=== PATIENT | female | born 1980 | race African-American/Black ===

== ENCOUNTER 2020-01-22 21:06 | Emergency (ER) | payer MEDICAID ==
[~2020-01-22] VITALS: Ht 167.6 cm; Wt 101.3 kg
[2020-01-22 21:32] VITALS: BP 136/76
--- NOTE | 2020-01-22 22:12 | NUR ---
Dr. Mills assessing pt.
[2020-01-22] MEDS ORDERED: KETOROLAC 30 MG/ML VIAL IM ONE (22:45)
--- NOTE | 2020-01-22 22:46 | NUR ---
PT REFUSED TORADOL SHOT.
[2020-01-22] MEDS ORDERED: AMOXIL/CLAVULANATE 875/125 MG 1 TAB ONE (22:50)
[2020-01-22] MEDS ORDERED: AMOXIL/CLAVULANATE 875/125 MG 1 TAB PO ONE (22:55)
--- NOTE | 2020-01-22 23:25 | NUR ---
Patient discharged with v/s stable. Written and verbal after care instructions given and explained. Patient alert, oriented and verbalized understanding of instructions. Ambulatory with steady gait. All questions addressed prior to discharge. ID band removed. Patient advised to follow up with PMD. Rx of IBUPROFEN AND AUGMENTIN given. Patient educated on indication of medication including possible reaction and side effects. Opportunity to ask questions provided and answered.
[2020-01-22 23:26] VITALS: BP 136/76
[2020-01-23] MEDS ORDERED: AMOXIL/CLAVULANATE 875/125 MG 1 TAB PO SCH (09:00)
== END 2020-01-22 23:26 | disposition home or self-care (01) ==
LOC: MED 21:06
DX: R51 Headache (principal); R09.81 Nasal congestion
CPT/HCPCS: 99283; J1885

== ENCOUNTER 2020-02-23 18:07 | Emergency (ER) | payer MEDICAID ==
[~2020-02-23] VITALS: Ht 167.6 cm; Wt 90.7 kg
--- NOTE | 2020-02-23 18:16 | NUR ---
PT AMBULATED TO BED 12, STEADY GAIT
[2020-02-23 18:17] VITALS: BP 124/85
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
--- NOTE | 2020-02-23 18:23 | NUR ---
LV PASCUAL AT BEDSIDE
[2020-02-23 18:34] VITALS: BP 124/85
--- NOTE | 2020-02-23 18:35 | NUR ---
Patient discharged with v/s stable. Written and verbal after care instructions given and explained. Patient alert, oriented and verbalized understanding of instructions. Ambulatory with steady gait. All questions addressed prior to discharge. ID band removed. Patient advised to follow up with PMD. Rx of MOTRIN AND AUGMENTIN given. Patient educated on indication of medication including possible reaction and side effects. Opportunity to ask questions provided and answered.
== END 2020-02-23 18:35 | disposition home or self-care (01) ==
LOC: MED 18:07
DX: K08.89 Other specified disorders of teeth and supporting structures (principal); R03.0 Elevated blood-pressure reading, without diagnosis of hypertension
CPT/HCPCS: 99283

== ENCOUNTER 2021-04-20 12:58 | Emergency (ER) | payer MEDICAID, OTHER ==
[~2021-04-20] VITALS: Ht 167.6 cm; Wt 99.8 kg
[2021-04-20 13:06] VITALS: BP 137/98
--- NOTE | 2021-04-20 13:17 | NUR ---
PT AMBULATED TO BED
--- NOTE | 2021-04-20 13:51 | NUR ---
X-Ray at bedside.
[2021-04-20 14:09] LABS: BASOPHILS # (AUTO) 0.1 K/uL (0.00-0.22); BASOPHILS % (AUTO) 0.7 % (0.0-2.0); EOSINOPHILS # (AUTO) 0.3 K/uL (0-0.4); EOSINOPHILS % (AUTO) 3.7 % (0.0-4.0); HEMATOCRIT 36.6 % (36-48); LYMPHOCYTES # (AUTO) 2.6 K/uL (2.5-16.5); LYMPHOCYTES % (AUTO) 35.6 % (20.5-51.1); MEAN CORPUSCULAR HEMOGLOBIN 26 pg (27-31); MEAN CORPUSCULAR HGB CONC 33 g/dL (33-37); MEAN CORPUSCULAR VOLUME 80.3 fL (80-94); MONOCYTES # (AUTO) 0.9 K/uL (0.8-1.0); MONOCYTES % (AUTO) 12.6 % (1.7-9.3); NEUTROPHILS # (AUTO) 3.5 K/uL (1.8-7.7); NEUTROPHILS % (AUTO) 47.4 % (42.2-75.2); PLATELET COUNT (AUTO) 260 K/uL (140-450); RED BLOOD CELL COUNT(AUTO) 4.56 MIL/uL (4.20-5.40); RED CELL DISTRIBUTION WIDTH 15.2 % (11.6-13.7); WHITE BLOOD COUNT (AUTO) 7.4 K/uL (4.8-10.8)
--- NOTE | 2021-04-20 14:29 | NUR ---
40/F BIB SELF WITH C/O UPPER BACK AND CHEST PAIN SINCE TODAY. PATIENT STATES ON HER WAY TO WORK THIS MORNING SHE BEGAN HAVING SUDDEN BACK PAIN RADIATING TO HER CHEST, DENIES ANY RECENT INJURY OR TRAUMA. REPORTS TAKING ASPIRIN WITH NO RELIEF, STATES 8/10 SHARP PAIN THAT IS NONRADIATING, STATES MOVEMENT, DEEP BREATHS AND BENDING FORWARD WORSENS THE PAIN. DENIES SOB, FEVER, CHILLS OR N/V/D.
[2021-04-20 14:32] LABS: ALBUMIN 3.4 g/dL (3.4-5.0); ANION GAP 11.1 (8-16); CARBON DIOXIDE 28.4 mmol/L (21-32); CREATININE 0.9 mg/dL (0.6-1.3); POTASSIUM 4.5 mmol/L (3.5-5.1); TOTAL BILIRUBIN 0.2 mg/dL (0.0-1.0)
[2021-04-20] MEDS ORDERED: KETOROLAC 60 MG/2 ML VIAL IM ONE (15:25)
[2021-04-20] MEDS ORDERED: NITROGLYCERIN 0.4 MG TAB SL ONE (15:25)
[2021-04-20] MEDS ORDERED: ASPIRIN 81 MG TAB.CHEW PO ONE (15:25)
--- NOTE | 2021-04-20 16:15 | NUR ---
PATIENT RESTING IN BED, STATES SOME RELIEF AT THIS. 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
[2021-04-20] MEDS ORDERED: NAPR500E1 PO (17:12)
[2021-04-20] MEDS ORDERED: LID5T TP (17:12)
[2021-04-20 17:48] VITALS: BP 128/85
--- NOTE | 2021-04-20 17:49 | NUR ---
Patient discharged with v/s stable. Written and verbal after care instructions given and explained. Patient alert, oriented and verbalized understanding of instructions. Ambulatory with steady gait. All questions addressed prior to discharge. ID band removed. Patient advised to follow up with PMD. Rx of LIDOCAINE, NAPROXEN given. Patient educated on indication of medication including possible reaction and side effects. Opportunity to ask questions provided and answered.
== END 2021-04-20 17:49 | disposition home or self-care (01) ==
LOC: MED 12:58
DX: R07.89 Other chest pain (principal); M54.9 Dorsalgia, unspecified; Z79.1 Long term (current) use of non-steroidal anti-inflammatories (NSAID); Z79.899 Other long term (current) drug therapy
CPT/HCPCS: 36415; 71045; 80053; 81002; 81025; 83880; 84484; 85025; 85379; 93005; 96372; 99285; J1885; Q0092

== ENCOUNTER 2022-01-11 10:45 | Emergency (ER) | payer OTHER ==
[~2022-01-11] VITALS: Ht 167.6 cm; Wt 101.6 kg
[~2022-01-11 10:45] MED LIST: LID5T TP; NAPR500E1 PO
[2022-01-11 10:49] VITALS: BP 132/95
--- NOTE | 2022-01-11 10:53 | NUR ---
AMBULATED TO BED 4
[2022-01-11] MEDS ORDERED: ONDANSETRON 4 MG ODT PO ONE (11:20)
[2022-01-11] MEDS ORDERED: SILVER SULFADIAZINE 1% 50 GM JAR TP ONE (11:20)
[2022-01-11] MEDS ORDERED: MORPHINE SULFATE 4 MG/ML SYR IM ONE (11:20)
[2022-01-11] MEDS ORDERED: BACITRACIN OINT 500 UNITS/GM PKT TP ONE (11:20)
--- NOTE | 2022-01-11 11:22 | NUR ---
LV Amador evaluating patient at bedside
[2022-01-11] MEDS ORDERED: BACI1PAC6 TP (11:41)
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
--- NOTE | 2022-01-11 12:36 | NUR ---
PT WOUNDS TO LEFT LOWER ANTERIOR LEG DRESSED PER ER MID LEVEL. PT TOLERATED DRESSINGS
--- NOTE | 2022-01-11 13:27 | NUR ---
Patient discharged with v/s stable. Written and verbal after care instructions given. Patient alert, oriented and verbalized understanding of instructions. Ambulatory with steady gait. All questions addressed prior to discharge. ID band removed. Patient advised to follow up with PMD. Rx of BACITRACIN given. Opportunity to ask questions provided and answered.
--- NOTE | 2022-01-11 13:28 | NUR ---
The patient's care was reviewed and supervised by Bina Jimenes RN.
[2022-01-11 13:30] VITALS: BP 126/87
== END 2022-01-11 13:27 | disposition home or self-care (01) ==
LOC: MED 10:45
DX: T25.222A Burn of second degree of left foot, initial encounter (principal); T25.221A Burn of second degree of right foot, initial encounter; T23.101A Burn of first degree of right hand, unspecified site, initial encounter; T31.0 Burns involving less than 10% of body surface; R03.0 Elevated blood-pressure reading, without diagnosis of hypertension; X08.8XXA Exposure to other specified smoke, fire and flames, initial encounter; Y93.89 Activity, other specified; Y92.89 Other specified places as the place of occurrence of the external cause; Y99.8 Other external cause status
CPT/HCPCS: 16000; 90471; 90715; 96372; 99284; J2270; Q0162

== ENCOUNTER 2022-01-21 08:30 | Emergency (ER) | payer OTHER ==
[~2022-01-21] VITALS: Ht 167.6 cm; Wt 10.0 kg
[~2022-01-21 08:30] MED LIST changes: +BACI1PAC6 TP
[2022-01-21 08:34] VITALS: BP 136/73
--- NOTE | 2022-01-21 08:34 | NUR ---
Patient ambulated to bed 3.
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
[2022-01-21] MEDS ORDERED: BACITRACIN OINT 500 UNITS/GM PKT TP ONE (08:50)
--- NOTE | 2022-01-21 08:56 | NUR ---
Right hand soaked in betadine and sterile water.
--- NOTE | 2022-01-21 09:16 | NUR ---
PER ER MD, STERILE WATER AND BETADINE SOLUTION APPLIED TO PT R HAND. NON ADHERENT THEN APPLIED TO PT 1ST 2ND AND 3RD DIGIT. + CMS AFTER APPLICATION
[2022-01-21] MEDS ORDERED: SULF-59 PO (09:41)
[2022-01-21] MEDS ORDERED: CEPH-588 PO (09:41)
--- NOTE | 2022-01-21 10:04 | NUR ---
Patient discharged with v/s stable. Written and verbal after care instructions given and explained. Patient alert, oriented and verbalized understanding of instructions. Ambulatory with steady gait. All questions addressed prior to discharge. ID band removed. Patient advised to follow up with PMD. Rx of Keflex & Bactrim Ds given. Patient educated on indication of medication including possible reaction and side effects. Opportunity to ask questions provided and answered.
== END 2022-01-21 10:04 | disposition home or self-care (01) ==
LOC: MED 08:30
DX: T23.001A Burn of unspecified degree of right hand, unspecified site, initial encounter (principal); Z79.899 Other long term (current) drug therapy; X10.2XXA Contact with fats and cooking oils, initial encounter; Y93.89 Activity, other specified; Y92.89 Other specified places as the place of occurrence of the external cause; Y99.8 Other external cause status
CPT/HCPCS: 99283